=== PATIENT | male | born 1945 | race Two or more races ===

== ENCOUNTER → 2018-05-13 | Outpatient (CLI) | payer MEDICARE ==
[2018-04-29 11:05] VITALS: BP 121/56
[~2018-05-13] MED LIST: ASPI325T8 PO; ATOR40TA59 PO; CLOP75TA PO; CYAN10005 PO; METO-239 PO; SACU1TAB PO
[2018-05-13 10:07] LABS: CALCIUM 9.4 mg/dL (8.5-10.1); CREATININE 1.1 mg/dL (0.7-1.3); GFR 66.2; POTASSIUM 4.7 mmol/L (3.5-5.1)
== END | disposition home or self-care (01) ==
LOC: LAB 09:30
PROVIDERS: ATTEND Nurse Practitioner
DX: I50.22 Chronic systolic (congestive) heart failure (principal); I25.10 Atherosclerotic heart disease of native coronary artery without angina pectoris; E78.5 Hyperlipidemia, unspecified; Z82.49 Family history of ischemic heart disease and other diseases of the circulatory system
CPT/HCPCS: 36415; 80048

== ENCOUNTER → 2018-06-02 | Outpatient (CLI) | payer MEDICARE, OTHER ==
[2018-04-29 11:05] VITALS: BP 121/56
[2018-06-02 09:15] LABS: CREATININE 1.2 mg/dL (0.7-1.3); GFR 59.9; POTASSIUM 4.7 mmol/L (3.5-5.1)
== END | disposition home or self-care (01) ==
LOC: LAB 08:48
PROVIDERS: ATTEND Nurse Practitioner
DX: I25.5 Ischemic cardiomyopathy (principal)
CPT/HCPCS: 36415; 80048

== ENCOUNTER → 2018-06-04 | Outpatient (CLI) | payer MEDICARE ==
[2018-04-29 11:05] VITALS: BP 121/56
--- NOTE | 2018-06-04 10:51 | CARD ---
MR#: [id number] Date of Study: 06/04/2018 Ordering Physician: NICANOR JACK, Referring Physician: NICANOR JACK Tech: Lolis Lowery JESIKA APPROVED REPORT EXAM: Two-dimensional and M-mode echocardiogram with Doppler and color Doppler. Other Information Quality : Good INDICATION Ischemic Cardiomyopathy 2D DIMENSIONS RVDd2.6 (2.9-3.5cm)Left Atrium(2D)4.6 (1.6-4.0cm) IVSd1.2 (0.7-1.1cm)Aortic Root(2D)3.4 (2.0-3.7cm) LVDd6.8 (3.9-5.9cm)LVOT Diameter2.3 (1.8-2.4cm) PWd1.0 (0.7-1.1cm)LVDs5.7 (2.5-4.0cm) FS (%) 15.8 %SV78.0 ml LVEF(%)30.0 (>50%) M-Mode DIMENSIONS LVDd8.04 (4.0-5.6cm)FS (%) 19 % LVDs6.49 (2.0-3.8cm)ESV(Teich)215.3 ml LVEF(%)38 (>50%) Aortic Valve AoV Peak Randy.212.0cm/sAoV VTI38.1cm AO Peak GR.18.0mmHgLVOT Peak Randy.97.8cm/s AO Mean GR.10mmHgAVA (VMAX)1.94cm2 RAJESH (VTI)2.02ub2WE P 1/2 Tuil362iu Mitral Valve MV E Uszhbdpl15.5cm/sMV DECEL QMHK532to MV A Eaodqwgo67.3cm/sE/A Ratio0.5 Tricuspid Valve TR P. Zaajmyzg154yx/sRAP QGWOMLPD5paYg TR Peak Gr.15vqLqAWRH18gsHb Pulmonary Vein S1 Nqrpaxwv29.3cm/sD2 Smypphui86.8cm/s LEFT VENTRICLE The Left Ventricle is moderately dilated. There is mild asymmetric septal left ventricular hypertroph y. Akinetic base to mid inferior and posterior vilchis and severely hypokinetic mid to distal lateral w all. The Ejection Fraction is 30%. Transmitral Doppler flow pattern is Grade I-abnormal relaxation pa ttern. RIGHT VENTRICLE The right ventricle is normal size. The right ventricular systolic function is normal. ATRIA The left atrium is mildly dilated. The right atrium size is normal. The interatrial septum is intact with no evidence for an atrial septal defect or patent foramen ovale as noted on 2-D or Doppler imagi ng. AORTIC VALVE The aortic valve is calcified but opens well. Doppler and Color Flow revealed mild to moderate aortic regurgitation. There is no significant aortic valvular stenosis. MITRAL VALVE The mitral valve is normal in structure and function. There is no evidence of mitral valve prolapse. There is no mitral valve stenosis. Doppler and Color-flow revealed mild mitral regurgitation. TRICUSPID VALVE The tricuspid valve is normal in structure and function. Doppler and Color Flow revealed trace tricus pid regurgitation. The PA pressure was estimated at 21 mmHg. There is no tricuspid valve stenosis. PULMONIC VALVE The pulmonary valve is normal in structure and function. Doppler and Color Flow revealed no pulmonic valvular regurgitation. There is no pulmonic valvular stenosis. GREAT VESSELS The aortic root is normal in size. The ascending aorta is mildly dilated at 3.7 cm. The IVC is normal in size and collapses >50% with inspiration. PERICARDIAL EFFUSION There is no evidence of significant pericardial effusion. Critical Notification Critical Value: No <Conclusion> Akinetic base to mid inferior and posterior vilchis and severely hypokinetic mid to distal lateral wall . The Ejection Fraction is 30%. Transmitral Doppler flow pattern is Grade I-abnormal relaxation pattern. Mild to moderate aortic regurgitation. Mild mitral regurgitation. Trace tricuspid regurgitation. The PA pressure was estimated at 21 mmHg. There is no evidence of significant pericardial effusion. Signed by : Eulogio Gill, Electronically Approved : 06/04/2018 10:49:46
== END | disposition home or self-care (01) ==
LOC: ECHO 08:50
PROVIDERS: ATTEND Nurse Practitioner
DX: I08.0 Rheumatic disorders of both mitral and aortic valves (principal)
CPT/HCPCS: 93306

== ENCOUNTER → 2018-08-04 | Outpatient (CLI) | payer MEDICARE ==
[2018-04-29 11:05] VITALS: BP 121/56
--- NOTE | 2018-08-04 09:32 | CARD ---
MR#: [id number] Date of Study: 08/04/2018 Ordering Physician: TRYE MARTINEZ, Referring Physician: TREY MARTINEZ, Tech: Jessica Renee [facility] APPROVED REPORT EXAM: Two-dimensional and M-mode echocardiogram with Doppler and color Doppler. Other Information Quality : GoodHR: 63bpm Rhythm : Other INDICATION Cardiomyopathy 2D DIMENSIONS RVDd3.2 (2.9-3.5cm)Left Atrium(2D)3.6 (1.6-4.0cm) IVSd1.0 (0.7-1.1cm)Aortic Root(2D)3.5 (2.0-3.7cm) LVDd6.8 (3.9-5.9cm)LVOT Diameter2.6 (1.8-2.4cm) PWd0.9 (0.7-1.1cm)LVDs5.8 (2.5-4.0cm) FS (%) 14.2 %SV70.6 ml M-Mode DIMENSIONS Left Atrium(MM)4.20 (2.5-4.0cm)Aortic Root3.87 (2.2-3.7cm) Aortic Valve AoV Peak Randy.266.8cm/sAoV VTI60.9cm AO Peak GR.28.5mmHgLVOT Peak Randy.106.0cm/s AO Mean GR.15mmHgAVA (VMAX)2.04cm2 RAJESH (VTI)2.72yg5IN P 1/2 Eiff447zm Mitral Valve MV E Bkksrhjw331.1cm/sMV DECEL LBQG688bf MV A Rhnbjsbd820.0cm/sE/A Ratio1.0 MV A Hdniukym876ph Pulmonary Valve PV Peak Mebjwloq02.4cm/s LEFT VENTRICLE The Left Ventricle is moderate to severely dilated. There is borderline concentric left ventricular h ypertrophy. The systolic function is severely impaired. The Ejection Fraction is estimated at 30%. Th ere is global hypokinesis of the left ventricle. Transmitral Doppler flow pattern is Grade II-pseudon ormal filling dynamics. RIGHT VENTRICLE The right ventricle is normal size. There is normal right ventricular wall thickness. The right ventr icular systolic function is normal. ATRIA The left atrium is mildly dilated. The right atrium is mildly dilated. 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 AORTIC VALVE The aortic valve is mildly to moderately calcified. The aortic valve is trileaflet. Doppler and Color Flow revealed mild aortic regurgitation. There is no significant aortic valvular stenosis. MITRAL VALVE The mitral valve is normal in structure and function. There is no evidence of mitral valve prolapse. There is no mitral valve stenosis. Doppler and Color-flow revealed mild mitral regurgitation. TRICUSPID VALVE The tricuspid valve is normal in structure and function. Doppler and Color Flow revealed mild tricusp id regurgitation. There is no tricuspid valve prolapse or vegetation. There is no tricuspid valve bailee nosis. PULMONIC VALVE The pulmonary valve is normal in structure and function. Doppler and Color Flow revealed mild pulmoni c valvular regurgitation. There is no pulmonic valvular stenosis. GREAT VESSELS The aortic root is mildly enlarged. The ascending aorta is mildly dilated. The IVC is normal in size and collapses >50% with inspiration. PERICARDIAL EFFUSION There is no evidence of significant pericardial effusion. Critical Notification Critical Value: No <Conclusion> The Left Ventricle is moderate to severely dilated. The systolic function is severely impaired. The Ejection Fraction is estimated at 30%. There is global hypokinesis of the left ventricle. There is borderline concentric left ventricular hypertrophy. There is no significant aortic valvular stenosis. Doppler and Color Flow revealed mild aortic regurgitation. Doppler and Color-flow revealed mild mitral regurgitation. Doppler and Color Flow revealed mild tricuspid regurgitation. The aortic root is mildly enlarged. Signed by : Biju Georges MD Electronically Approved : 08/04/2018 09:30:30
== END | disposition home or self-care (01) ==
LOC: ECHO 07:43
PROVIDERS: ATTEND Internal Medicine Cardiovascular Disease
DX: I25.5 Ischemic cardiomyopathy (principal); I08.3 Combined rheumatic disorders of mitral, aortic and tricuspid valves
CPT/HCPCS: 93306

== ENCOUNTER → 2018-08-12 | Outpatient (CLI) | payer MEDICARE ==
[2018-04-29 11:05] VITALS: BP 121/56
[2018-08-12 13:45] LABS: CHOLESTEROL/HDL RATIO 2.4
== END | disposition home or self-care (01) ==
LOC: LAB 12:32
PROVIDERS: ATTEND Internal Medicine Cardiovascular Disease
DX: E78.5 Hyperlipidemia, unspecified (principal)
CPT/HCPCS: 36415; 80061

== ENCOUNTER → 2019-03-09 | Outpatient (CLI) | payer MEDICARE ==
[2018-04-29 11:05] VITALS: BP 121/56
[2019-03-09 09:04] LABS: CHOLESTEROL/HDL RATIO 2.2
== END | disposition home or self-care (01) ==
LOC: LAB 08:25
PROVIDERS: ATTEND Internal Medicine Cardiovascular Disease
DX: E78.5 Hyperlipidemia, unspecified (principal)
CPT/HCPCS: 36415; 80061; 83721

== ENCOUNTER → 2019-11-01 | Outpatient (CLI) | payer MEDICARE ==
[2018-04-29 11:05] VITALS: BP 121/56
[~2019-11-01] MED LIST changes: +CYAN-25 PO; -CYAN10005 PO
--- NOTE | 2019-11-01 15:21 | CARD ---
MR#: [id number] Date of Study: 11/01/2019 Ordering Physician: TREY MARTINEZ, Referring Physician: TREY MARTINEZ, Tech: Lolis Lowery [facility] APPROVED REPORT EXAM: Two-dimensional and M-mode echocardiogram with Doppler and color Doppler. Other Information Quality : Good INDICATION Ischemic Cardiomyopathy 2D DIMENSIONS RVDd2.6 (2.9-3.5cm)Left Atrium(2D)3.5 (1.6-4.0cm) IVSd0.8 (0.7-1.1cm)Aortic Root(2D)3.5 (2.0-3.7cm) LVDd6.9 (3.9-5.9cm)LVOT Diameter2.3 (1.8-2.4cm) PWd0.9 (0.7-1.1cm)LVDs5.0 (2.5-4.0cm) FS (%) 15.0 %SV126.0 ml LVEF(%)30.0 (>50%) Aortic Valve AoV Peak Randy.246.4cm/sAoV VTI47.3cm AO Peak GR.24.3mmHgLVOT Peak Randy.104.6cm/s AO Mean GR.14mmHgAVA (VMAX)1.70cm2 RAJESH (VTI)1.67cu4NR P 1/2 Mfbq237ml Mitral Valve MV E Sxogoacw31.0cm/sMV DECEL JIFC085os MV A Fwznszxl77.5cm/sE/A Ratio0.7 Pulmonary Vein S1 Vmnpuxoo29.5cm/sD2 Bcjinstg17.7cm/s LEFT VENTRICLE The Left Ventricle is moderately dilated. There is normal left ventricular wall thickness. Left ventr icle systolic function is moderately impaired. LVEF 35-40% There is global hypokinesis of the left ve ntricle. There is severe hypokinesis of the lateral/posterior vilchis. Transmitral Doppler flow pattern is Grade I-abnormal relaxation pattern. RIGHT VENTRICLE The right ventricle is normal size. There is normal right ventricular wall thickness. The right ventr icular systolic function is normal. ATRIA The left atrium is mildly dilated. The right atrium size is normal. The interatrial septum is intact with no evidence for an atrial septal defect or patent foramen ovale as noted on 2-D or Doppler imagi ng. AORTIC VALVE The aortic valve is calcified and displays decreased opening. Doppler and Color Flow revealed mild to moderate aortic regurgitation. Calculated aortic valve area is 1.8 cm2 with maximum pressure gradien t of 24 mmHg and mean pressure gradient of 14 mmHg. Doppler and color-flow analysis revealed minimal aortic stenosis. MITRAL VALVE The mitral valve is calcified but opens well. Mitral annular calcification is mild. There is no evide nce of mitral valve prolapse. There is no mitral valve stenosis. Doppler and Color-flow revealed trac e mitral regurgitation. TRICUSPID VALVE The tricuspid valve is normal in structure and function. Doppler and Color Flow revealed no tricuspid valve regurgitation noted. There is no tricuspid valve stenosis. PULMONIC VALVE The pulmonic valve is not well visualized. Doppler and Color Flow revealed mild pulmonic valvular reg urgitation. There is no pulmonic valvular stenosis. GREAT VESSELS The aortic root is normal in size. The ascending aorta is not well seen. The IVC is normal in size an d collapses >50% with inspiration. PERICARDIAL EFFUSION There is no evidence of significant pericardial effusion. Critical Notification Critical Value: No <Conclusion> Left ventricle systolic function is moderately impaired. LVEF 35-40% There is global hypokinesis of the left ventricle. There is severe hypokinesis of the lateral/posteri or vilchis. Calculated aortic valve area is 1.8 cm2 with maximum pressure gradient of 24 mmHg and mean pressure g radient of 14 mmHg. Doppler and color-flow analysis revealed minimal aortic stenosis. Signed by : Trey Martinez, Electronically Approved : 11/01/2019 15:21:45
== END | disposition home or self-care (01) ==
LOC: ECHO 07:54
PROVIDERS: ATTEND Internal Medicine Cardiovascular Disease
DX: I08.8 Other rheumatic multiple valve diseases (principal); I25.5 Ischemic cardiomyopathy
CPT/HCPCS: 93306

== ENCOUNTER → 2020-07-24 | Outpatient (CLI) | payer MEDICARE ==
[2018-04-29 11:05] VITALS: BP 121/56
[2020-07-24 08:30] LABS: BASO % 0 % (0-3); EOS # 0.1 x10^3/uL (0.0-0.7); EOS % 2 % (0-3); HEMATOCRIT 44.4 % (39.0-53.0); HEMOGLOBIN 14.9 g/dL (13.0-17.5); LYMPH # 1.5 x10^3/uL (1.0-4.8); LYMPH % 33 % (24-48); MEAN CORPUSCULAR HEMOGLOBIN 31 pg (25-35); MEAN CORPUSCULAR HGB CONC 33 g/dL (31-37); MEAN CORPUSCULAR VOLUME 94 fL (79-100); MONO # 0.4 x10^3/uL (0.0-1.1); MONO % 9 % (0-9); NEUT # 2.5 x10^3/uL (1.8-7.7); NEUT % 56 % (31-73); PLATELET COUNT 102 x10^3/uL (140-400); RED BLOOD COUNT 4.74 x10^6/uL (4.30-5.70); RED CELL DISTRIBUTION WIDTH 13.4 % (11.5-14.5); WHITE BLOOD COUNT 4.5 x10^3/uL (4.0-11.0)
[2020-07-24 08:50] LABS: ALBUMIN 4.3 g/dL (3.4-5.0); ALBUMIN/GLOBULIN RATIO 1.6 (1.0-1.7); CALCIUM 8.8 mg/dL (8.5-10.1); CREATININE 1.2 mg/dL (0.7-1.3); GFR 59.5; TOTAL BILIRUBIN 0.5 mg/dL (0.2-1.0)
[2020-07-24 08:52] LABS: CHOLESTEROL/HDL RATIO 2.6
== END ==
LOC: LAB 07:30
PROVIDERS: ATTEND Internal Medicine Cardiovascular Disease
DX: I25.5 Ischemic cardiomyopathy (principal); I10 Essential (primary) hypertension; I25.10 Atherosclerotic heart disease of native coronary artery without angina pectoris
CPT/HCPCS: 36415; 80053; 80061; 83721; 85025

== ENCOUNTER → 2020-08-21 | Outpatient (CLI) | payer MEDICARE ==
[2018-04-29 11:05] VITALS: BP 121/56
[2020-08-21 08:23] LABS: BASO % 0 % (0-3); EOS # 0.1 x10^3/uL (0.0-0.7); EOS % 1 % (0-3); HEMATOCRIT 42.9 % (39.0-53.0); HEMOGLOBIN 14.8 g/dL (13.0-17.5); LYMPH # 1.3 x10^3/uL (1.0-4.8); LYMPH % 20 % (24-48); MEAN CORPUSCULAR HEMOGLOBIN 32 pg (25-35); MEAN CORPUSCULAR HGB CONC 35 g/dL (31-37); MEAN CORPUSCULAR VOLUME 92 fL (79-100); MONO # 0.6 x10^3/uL (0.0-1.1); MONO % 9 % (0-9); NEUT # 4.5 x10^3/uL (1.8-7.7); NEUT % 69 % (31-73); PLATELET COUNT 99 x10^3/uL (140-400); RED BLOOD COUNT 4.68 x10^6/uL (4.30-5.70); WHITE BLOOD COUNT 6.6 x10^3/uL (4.0-11.0)
[2020-08-21 08:55] LABS: CALCIUM 8.5 mg/dL (8.5-10.1); CREATININE 1.1 mg/dL (0.7-1.3); GFR 65.6; POTASSIUM 4.6 mmol/L (3.5-5.1)
== END ==
LOC: LAB 07:38
PROVIDERS: ATTEND Internal Medicine Cardiovascular Disease
DX: I25.5 Ischemic cardiomyopathy (principal); I50.9 Heart failure, unspecified
CPT/HCPCS: 36415; 80048; 83880; 85025

== ENCOUNTER → 2020-12-04 | Outpatient (CLI) | payer MEDICARE ==
[2018-04-29 11:05] VITALS: BP 121/56
--- NOTE | 2020-12-04 17:41 | CARD ---
MR#: [id number] Date of Study: 12/04/2020 Ordering Physician: TREY MARTINEZ, Referring Physician: TREY MARTINEZ, Tech: Day Champagne [facility] APPROVED REPORT EXAM: Two-dimensional and M-mode echocardiogram with Doppler and color Doppler. Other Information Quality : AverageHR: 52bpm Rhythm : NSR INDICATION CAD Cardiomyopathy RISK FACTORS Hypertension Hyperlipidemia 2D DIMENSIONS RVDd4.2 (2.9-3.5cm)Left Atrium(2D)4.3 (1.6-4.0cm) IVSd1.0 (0.7-1.1cm)Aortic Root(2D)3.5 (2.0-3.7cm) LVDd6.0 (3.9-5.9cm)LVOT Diameter2.6 (1.8-2.4cm) PWd1.1 (0.7-1.1cm)LVDs4.7 (2.5-4.0cm) FS (%) 20.8 %SV74.7 ml LVEF(%)41.7 (>50%) Aortic Valve AoV Peak Randy.277.5cm/sAoV VTI65.4cm AO Peak GR.30.8mmHgLVOT Peak Randy.106.9cm/s AO Mean GR.15mmHgAVA (VMAX)2.03cm2 AI P 1/2 Fwdm992dn Mitral Valve MV E Yymwxcsp18.9cm/sMV DECEL DYBX835xv MV A Sxocrist65.4cm/sE/A Ratio0.8 Pulmonary Valve PV Peak Tdjtrrda73.9cm/s LEFT VENTRICLE The Left Ventricle is mildly dilated. There is normal left ventricular wall thickness. The systolic f unction is mildly impaired. Estimated ejection fraction 40-45%. The basal to mid inferior and inferol ateral wall is severely hypokinetic. Mild global hypokinesis otherwise. Transmitral Doppler flow rosalinda chelly is Grade I-abnormal relaxation pattern. RIGHT VENTRICLE The right ventricle is normal size. There is normal right ventricular wall thickness. The right ventr icular systolic function is normal. ATRIA The left atrium is severely dilated. The right atrium size is normal. The interatrial septum is intac t with no evidence for an atrial septal defect or patent foramen ovale as noted on 2-D or Doppler loco ging. AORTIC VALVE The aortic valve is calcified but opens well. Doppler and Color Flow revealed mild aortic regurgitati on. There is no significant aortic valvular stenosis. MITRAL VALVE The mitral valve is normal in structure and function. There is no evidence of mitral valve prolapse. There is no mitral valve stenosis. Doppler and Color-flow revealed mild mitral regurgitation. TRICUSPID VALVE The tricuspid valve is normal in structure and function. Doppler and Color Flow revealed no tricuspid valve regurgitation noted. There is no tricuspid valve stenosis. PULMONIC VALVE Doppler and Color Flow revealed mild pulmonic valvular regurgitation. There is no pulmonic valvular s tenosis. GREAT VESSELS The aortic root is normal in size. The IVC is normal in size and collapses >50% with inspiration. PERICARDIAL EFFUSION There is no evidence of significant pericardial effusion. Critical Notification Critical Value: No <Conclusion> The systolic function is mildly impaired. Estimated ejection fraction 40-45%. The basal to mid inferior and inferolateral wall is severely hypokinetic. Mild global hypokinesis oth erwise. Doppler and Color Flow revealed mild aortic regurgitation. Signed by : Trey Martinez, Electronically Approved : 12/04/2020 17:40:58
== END ==
LOC: ECHO 07:39
PROVIDERS: ATTEND Internal Medicine Cardiovascular Disease
DX: I08.8 Other rheumatic multiple valve diseases (principal); I25.5 Ischemic cardiomyopathy
CPT/HCPCS: 93306

== ENCOUNTER → 2021-02-12 | Outpatient (CLI) | payer MEDICARE ==
[2018-04-29 11:05] VITALS: BP 121/56
[2021-02-12 08:54] LABS: BASO % 0 % (0-3); EOS # 0.1 x10^3/uL (0.0-0.7); EOS % 2 % (0-3); HEMOGLOBIN 13.7 g/dL (13.0-17.5); LYMPH # 1.5 x10^3/uL (1.0-4.8); LYMPH % 31 % (24-48); MEAN CORPUSCULAR HEMOGLOBIN 32 pg (25-35); MEAN CORPUSCULAR HGB CONC 34 g/dL (31-37); MEAN CORPUSCULAR VOLUME 93 fL (79-100); MONO # 0.5 x10^3/uL (0.0-1.1); MONO % 10 % (0-9); NEUT # 2.8 x10^3/uL (1.8-7.7); NEUT % 58 % (31-73); PLATELET COUNT 109 x10^3/uL (140-400); RED CELL DISTRIBUTION WIDTH 13.3 % (11.5-14.5); WHITE BLOOD COUNT 4.8 x10^3/uL (4.0-11.0)
[2021-02-12 09:04] LABS: ALBUMIN 4.3 g/dL (3.4-5.0); ALBUMIN/GLOBULIN RATIO 1.7 (1.0-1.7); CALCIUM 8.2 mg/dL (8.5-10.1); CREATININE 1.2 mg/dL (0.7-1.3); GFR 59.3; POTASSIUM 5.5 mmol/L (3.5-5.1); TOTAL BILIRUBIN 0.4 mg/dL (0.2-1.0); TOTAL PROTEIN 6.9 g/dL (6.4-8.2)
[2021-02-12 09:05] LABS: CHOLESTEROL/HDL RATIO 2.5
== END ==
LOC: LAB 08:11
PROVIDERS: ATTEND Internal Medicine Cardiovascular Disease
DX: I25.5 Ischemic cardiomyopathy (principal); I50.21 Acute systolic (congestive) heart failure
CPT/HCPCS: 36415; 80053; 80061; 83721; 83880; 85025

== ENCOUNTER → 2021-03-05 | Outpatient (CLI) | payer MEDICARE ==
[2018-04-29 11:05] VITALS: BP 121/56
[2021-03-05 09:05] LABS: CALCIUM 8.5 mg/dL (8.5-10.1); CREATININE 1.3 mg/dL (0.7-1.3); GFR 54.1
== END ==
LOC: LAB 08:15
PROVIDERS: ATTEND Internal Medicine Cardiovascular Disease
DX: E87.5 Hyperkalemia (principal)
CPT/HCPCS: 36415; 80048

== ENCOUNTER → 2021-04-08 | Outpatient (CLI) | payer MEDICARE ==
[2018-04-29 11:05] VITALS: BP 121/56
[2021-04-08 09:05] LABS: CALCIUM 8.3 mg/dL (8.5-10.1); CREATININE 1.1 mg/dL (0.7-1.3); GFR 65.6; POTASSIUM 4.9 mmol/L (3.5-5.1)
== END ==
LOC: LAB 08:18
PROVIDERS: ATTEND Internal Medicine Cardiovascular Disease
DX: E87.5 Hyperkalemia (principal)
CPT/HCPCS: 36415; 80048

== ENCOUNTER → 2021-11-05 | Outpatient (CLI) | payer MEDICARE, OTHER ==
[2018-04-29 11:05] VITALS: BP 121/56
--- NOTE | 2021-11-06 11:32 | RAD ---
MR#: [id number] Date of Study: 11/05/2021 Ordering Physician: TREY MARTINEZ, Referring Physician: SANTA MEDEIROS Tech: IRA Ruvalcaba, YRN (R) (N) APPROVED REPORT Test Type: Exercise Stress Nurse/Tech: ALCIDES SHOOK Test Indications: ISCHEMIC CARDIOMYOPATHY Cardiac History: CAD, STENTS, ICM, HTN- SEE EMR Medications: SEE EMR Medical History: SEE EMR Resting ECG: SB W/ 1ST DEGREE AVB Resting Heart Rate: 52 bpm Resting Blood Pressure: 138/52mmHg Pretest Chest Pain: No chest pain Nurse/Tech Notes S1,S2, LUNGS CTA, DENIED CHEST PAIN OR SHORTNESS OF AIR. VSS. Consent: The procedure was explained to the patient in lay terms. Informed consent was witnessed. Cole eout was entered into [employer]!. History and Stress Test performed by RT Shameka (R) (N) Stress Symptoms PT HAD SHORTNESS OF BREATH DURING TREADMILL TEST, DENIED CHEST PAIN. PT HAD SLIGHT DIFFICULTY WALKING ON THE TREADMILL. POST EXERCISE Reason for Termination: Reached target heart rate Target HR: 124 Max HR: 128 bpm 88% of Maximum Predicted HR: 146 bpm Exercise duration: 4:30 min:sec, 3 Stage Exercise capacity: 10.0METs Max Blood Pressure: 161/46mmHg Blood Pressure response to exercise: Normal blood pressure response during stress. Heart Rate response to exercise: WNL Chest Pain: No. Arrhythmia: Yes. PVC'S, BIGEMINY NOTED Imaging Protocol IMAGE PROTOCOL: Rest Tc-99m/stress Tc-99m 1 day Rest: Stress: Viability: Radiopharm.Tc99m CzekxlqjbFm39e Sestamibi Dose10.5mCi 32.1mCi Img Date 11/05/2021 11/05/2021 Inj-Img Uaux84eij. 60min. Rest Admin Site:IV - Left AntecubitalAdministrator:IRA Ruvalcaba, ARRT (R)(N) Stress Admin Site: IV - Left AntecubitalAdministrator: RT Dacia Myles)(N) STRESS DATA End Diast. Vol.250.0mlAv. Heart Rate74.0bpm End Syst. Vol.159.0mlCO Index BSA0.0L/min Myocardial Tzql945.0gEject. Vhxcoclw05.0% Stress Rates Pk. Fill Rate0.99EDV/secLVtime Pk. Fill 177.39msec Pk. Empty Rate2.58ESV/secLVtime Pk. Uyuab373.34msec 1/3 Pk. Fill0.39EDV/sec Stress Scores Regional WT1.00Summed WT14.00 Regional WM0.00Summed WM15.00 LV Perfusion The stress images show an inferior lateral wall defect. The rest images show a slight inferior wall defect. Nuclear imaging shows significant reversible ischemia in the inferior lateral region. Wall Motion Left ventricular systolic function is significantly reduced with an ejection fraction of 38%. LV Perf. Quant 17 Seg. SSS25.00 17 Seg. SRS13.00 17 Seg. SDS13.00 Stress Defect Extent (% LAD)31.90Rest Defect Extent (% LAD)1.90Rev. Defect Extent (% LAD)31.90 Stress Defect Extent (% LCX) 100.00Rest Defect Extent (% LCX)100.00Rev. Defect Extent (% LCX)61. 30 Stress Defect Extent (% RCA)12.20Rest Defect Extent (% RCA)7.80Rev. Defect Extent (% RCA)12.20 Stress Defect Extent (% ELLEN)49.30Rest Defect Extent (% ELLEN)24.60Rev. Defect Extent (% ELLEN)41.10 Conclusion 1. Fair exercise tolerance with the patient walking for 4 minutes and 30 seconds on a Gabe protocol. 2. No chest pain with exertion. 3. Episodes of increased bigeminy with exertion. 4. Abnormal baseline EKG with nonspecific changes with exertion. 5. Nuclear imaging shows a significant area of reversible ischemia in the inferior lateral wall. 6. Left ventricular systolic function decreased with an ejection fraction of 38%. 7. Moderately high risk treadmill nuclear stress test with decreased ejection fraction and a signific ant area of reversible ischemia in the inferior lateral wall. Signed by : Biju Georges MD Electronically Approved : 11/06/2021 11:32:04
== END ==
LOC: NM 08:16
PROVIDERS: ATTEND Internal Medicine Cardiovascular Disease
DX: R94.31 Abnormal electrocardiogram [ECG] [EKG] (principal); I51.9 Heart disease, unspecified; I25.5 Ischemic cardiomyopathy
CPT/HCPCS: 78452; 93017; A9500

== ENCOUNTER → 2021-12-19 | Outpatient (CLI) | payer MEDICARE ==
[2018-04-29 11:05] VITALS: BP 121/56
[2021-12-19 08:28] LABS: BASO % 1 % (0-3); EOS # 0.1 x10^3/uL (0.0-0.7); EOS % 2 % (0-3); HEMOGLOBIN 13.9 g/dL (13.0-17.5); LYMPH # 1.4 x10^3/uL (1.0-4.8); LYMPH % 30 % (24-48); MEAN CORPUSCULAR HEMOGLOBIN 32 pg (25-35); MEAN CORPUSCULAR HGB CONC 34 g/dL (31-37); MEAN CORPUSCULAR VOLUME 93 fL (79-100); MONO # 0.5 x10^3/uL (0.0-1.1); MONO % 10 % (0-9); NEUT # 2.7 x10^3/uL (1.8-7.7); NEUT % 58 % (31-73); PLATELET COUNT 113 x10^3/uL (140-400); RED CELL DISTRIBUTION WIDTH 13.5 % (11.5-14.5); WHITE BLOOD COUNT 4.7 x10^3/uL (4.0-11.0)
[2021-12-19 08:50] LABS: ALBUMIN 4.1 g/dL (3.4-5.0); ALBUMIN/GLOBULIN RATIO 1.2 (1.0-1.7); CALCIUM 8.4 mg/dL (8.5-10.1); CREATININE 1.4 mg/dL (0.7-1.3); GFR 49.5; TOTAL BILIRUBIN 0.4 mg/dL (0.2-1.0); TOTAL PROTEIN 7.5 g/dL (6.4-8.2)
[2021-12-19 08:51] LABS: CHOLESTEROL/HDL RATIO 2.5
== END ==
LOC: LAB 07:55
PROVIDERS: ATTEND Internal Medicine Cardiovascular Disease
DX: I25.5 Ischemic cardiomyopathy (principal); I50.9 Heart failure, unspecified
CPT/HCPCS: 36415; 80053; 80061; 83721; 83880; 85025